=== PATIENT | female | born 1960 | race Caucasian/White ===

== ENCOUNTER 2017-04-03 19:07 | Emergency (ER) | payer MEDICARE ==
[~2017-04-03] VITALS: Ht 175.3 cm; Wt 86.2 kg
[2017-04-03] MEDS ORDERED: Robaxin-750750 MG PO (20:00)
== END 2017-04-03 21:32 | disposition home or self-care (01) ==
LOC: ER 19:07
DX: M62.830 Muscle spasm of back (principal); M50.30 Other cervical disc degeneration, unspecified cervical region; Z88.8 Allergy status to other drugs, medicaments and biological substances; F32.9 Major depressive disorder, single episode, unspecified; Z85.3 Personal history of malignant neoplasm of breast; I10 Essential (primary) hypertension; F41.9 Anxiety disorder, unspecified
CPT/HCPCS: 72040; 72125; 73000; 99284

== ENCOUNTER 2018-06-14 06:46 | Emergency (ER) | payer MEDICARE ==
[~2018-06-14] VITALS: Ht 175.3 cm; Wt 81.7 kg
[~2018-06-14 06:46] MED LIST: Robaxin-750750 MG PO
[2018-06-14] MEDS ORDERED: IBUP400 PO (07:54)
== END 2018-06-14 08:05 | disposition home or self-care (01) ==
LOC: ER 06:46
DX: S09.90XA Unspecified injury of head, initial encounter (principal); S20.212A Contusion of left front wall of thorax, initial encounter; S40.012A Contusion of left shoulder, initial encounter; W01.198A Fall on same level from slipping, tripping and stumbling with subsequent striking against other object, initial encounter; Z88.8 Allergy status to other drugs, medicaments and biological substances; F32.9 Major depressive disorder, single episode, unspecified; Z85.3 Personal history of malignant neoplasm of breast; I10 Essential (primary) hypertension; F41.9 Anxiety disorder, unspecified; F17.210 Nicotine dependence, cigarettes, uncomplicated
CPT/HCPCS: 71046; 73030; 96372; 99283-25; J1885

== ENCOUNTER 2018-06-25 11:52 | Emergency (ER) | payer MEDICARE ==
[~2018-06-25] VITALS: Ht 177.8 cm; Wt 81.7 kg
[~2018-06-25 11:52] MED LIST changes: +IBUP400 PO
[2018-06-25] MEDS ORDERED: Robaxin-750750 MG PO (14:14)
[2018-06-25] MEDS ORDERED: LIDO700A20 TOP (14:14)
[2018-06-25] MEDS ORDERED: NAPR550 PO (14:15)
== END 2018-06-25 14:30 | disposition home or self-care (01) ==
LOC: ER 11:52
DX: M62.838 Other muscle spasm (principal); I10 Essential (primary) hypertension; F41.9 Anxiety disorder, unspecified; F17.210 Nicotine dependence, cigarettes, uncomplicated; Z79.899 Other long term (current) drug therapy
CPT/HCPCS: 72125; 96372; 99284-25; J1885